=== PATIENT | male | born 1985 | race Caucasian/White ===

== ENCOUNTER 2017-01-20 19:34 | Emergency (ER) | payer MEDICAID ==
[~2017-01-20] VITALS: Ht 182.9 cm; Wt 88.0 kg
[~2017-01-20 19:34] MED LIST: OXYC1CAP PO
[2017-01-20 19:38] VITALS: BP 124/74; PULSE 80; RESP 16; TEMP 98.6; O2SAT 98
--- NOTE | 2017-01-20 20:24 | PD ---
Physical Exam Time Seen by Provider: 20:21 Narrative 31yo M c/o lower abd pain w/ bloody vomitus and bloody diarrhea today. Denies fever. Denies ETOH, drug use. Also c/o L heel pain from falling off a roof one week ago. Patient stable. Patient seen in triage. Awaiting bed placement. Data Data Last Documented VS Vital Signs Date Time Temp Pulse Resp B/P Pulse Ox O2 Delivery O2 Flow Rate FiO2 01/20/17 19:38 98.6 80 16 124/74 98 Room Air MDM Supervised Visit with ELVA: Nadja Medellin Jan 20, 2017 20:24
[2017-01-20] MEDS ORDERED: SODIUM CHLOR 0.9% 1000 ML INJ 1,000 ML IV SCH (22:16)
[2017-01-20] MEDS ORDERED: DEXAMETHASONE SOD PHOS 20 MG/5 ML VIAL IV PUSH ONE (22:30)
[2017-01-20] MEDS ORDERED: SODIUM CHLORIDE 0.9% FLUSH 10 ML FLUSH IV FLUSH PRN (22:30)
[2017-01-20] MEDS ORDERED: MORPHINE SULFATE 4 MG/ML INJ IV PUSH ONE (22:30)
[2017-01-20] MEDS ORDERED: ONDANSETRON HCL 4 MG/2 ML VIAL IVP ONE (22:30)
--- NOTE | 2017-01-20 22:38 | PD ---
Physical Exam Date Seen by Provider: Jan 20, 2017 Time Seen by Provider: 22:36 Narrative The patient is a 31-year-old male who was initially evaluated by the mid-level provider, please refer to the original history, physical, diagnostic evaluation , treatment modality plan. The patient was signed out 11 PM with laboratory evaluation and CT pending. Data Data Last Documented VS Vital Signs Date Time Temp Pulse Resp B/P Pulse Ox O2 Delivery O2 Flow Rate FiO2 01/20/17 22:13 16 01/20/17 19:38 98.6 80 124/74 98 Room Air Orders Complete Blood Count With Diff (01/20/17 22:16) Comprehensive Metabolic Panel (01/20/17 22:16) Lipase (01/20/17 22:16) Lactic Acid (01/20/17 22:16) Prothrombin Time / Inr (Pt) (01/20/17 22:16) Act Partial Throm Time (Ptt) (01/20/17 22:16) Urinalysis - C+S If Indicated (01/20/17 22:16) Iv Access Insert/Monitor (01/20/17 22:16) Ecg Monitoring (01/20/17 22:16) Oximetry (01/20/17 22:16) NPO (01/20/17 22:16) Morphine Inj (Morphine Inj) (01/20/17 22:30) Ondansetron Inj (Zofran Inj) (01/20/17 22:30) Sodium Chlor 0.9% 1000 Ml Inj (Ns 1000 M (01/20/17 22:16) Sodium Chloride 0.9% Flush (Ns Flush) (01/20/17 22:30) Dexamethasone Inj (Decadron Inj) (01/20/17 22:30) Oral Contrast - Adult (01/20/17 22:20) Foot, Complete (Hsy1ctx) (01/20/17 22:31) Diatrizoate Liq ( Gastroview Liq) (01/20/17 23:41) Sodium Chlor 0.9% 1000 Ml Inj (Ns 1000 M (01/21/17 00:00) Ct Abd/Pel W Iv Contrast(Rout) (01/21/17 22:16) Iohexol 350 Inj (Omnipaque 350 Inj) (01/21/17 01:00) Ct Foot W/O Contrast (01/21/17 ) Labs Laboratory Tests Test 01/20/17 22:38 White Blood Count 8.5 TH/MM3 Red Blood Count 5.61 MIL/MM3 Hemoglobin 16.3 GM/DL Hematocrit 48.2 % Mean Corpuscular Volume 85.8 FL Mean Corpuscular Hemoglobin 29.0 PG Mean Corpuscular Hemoglobin 33.8 % Concent Red Cell Distribution Width 14.4 % Platelet Count 219 TH/MM3 Mean Platelet Volume 8.8 FL Neutrophils (%) (Auto) 51.4 % Lymphocytes (%) (Auto) 39.7 % Monocytes (%) (Auto) 7.0 % Eosinophils (%) (Auto) 1.6 % Basophils (%) (Auto) 0.3 % Neutrophils # (Auto) 4.4 TH/MM3 Lymphocytes # (Auto) 3.4 TH/MM3 Monocytes # (Auto) 0.6 TH/MM3 Eosinophils # (Auto) 0.1 TH/MM3 Basophils # (Auto) 0.0 TH/MM3 CBC Comment DIFF FINAL Differential Comment Prothrombin Time 10.6 SEC Prothromb Time International 1.0 RATIO Ratio Activated Partial 24.3 SEC Thromboplast Time Sodium Level 140 MEQ/L Potassium Level 3.5 MEQ/L Chloride Level 101 MEQ/L Carbon Dioxide Level 30.7 MEQ/L Anion Gap 8 MEQ/L Blood Urea Nitrogen 9 MG/DL Creatinine 1.21 MG/DL Estimat Glomerular Filtration 70 ML/MIN Rate Random Glucose 76 MG/DL Lactic Acid Level 2.3 mmol/L Calcium Level 9.4 MG/DL Total Bilirubin 0.9 MG/DL Aspartate Amino Transf 27 U/L (AST/SGOT) Alanine Aminotransferase 64 U/L (ALT/SGPT) Alkaline Phosphatase 158 U/L Total Protein 9.0 GM/DL Albumin 4.3 GM/DL Lipase 101 U/L [facility] Medical Record Reviewed: Yes Supervised Visit with ELVA: Yes Interpretation(s) Laboratory Tests Test 01/20/17 22:38 White Blood Count 8.5 TH/MM3 Red Blood Count 5.61 MIL/MM3 Hemoglobin 16.3 GM/DL Hematocrit 48.2 % Mean Corpuscular Volume 85.8 FL Mean Corpuscular Hemoglobin 29.0 PG Mean Corpuscular Hemoglobin 33.8 % Concent Red Cell Distribution Width 14.4 % Platelet Count 219 TH/MM3 Mean Platelet Volume 8.8 FL Neutrophils (%) (Auto) 51.4 % Lymphocytes (%) (Auto) 39.7 % Monocytes (%) (Auto) 7.0 % Eosinophils (%) (Auto) 1.6 % Basophils (%) (Auto) 0.3 % Neutrophils # (Auto) 4.4 TH/MM3 Lymphocytes # (Auto) 3.4 TH/MM3 Monocytes # (Auto) 0.6 TH/MM3 Eosinophils # (Auto) 0.1 TH/MM3 Basophils # (Auto) 0.0 TH/MM3 CBC Comment DIFF FINAL Differential Comment Prothrombin Time 10.6 SEC Prothromb Time International 1.0 RATIO Ratio Activated Partial 24.3 SEC Thromboplast Time Sodium Level 140 MEQ/L Potassium Level 3.5 MEQ/L Chloride Level 101 MEQ/L Carbon Dioxide Level 30.7 MEQ/L Anion Gap 8 MEQ/L Blood Urea Nitrogen 9 MG/DL Creatinine 1.21 MG/DL Estimat Glomerular Filtration 70 ML/MIN Rate Random Glucose 76 MG/DL Lactic Acid Level 2.3 mmol/L Calcium Level 9.4 MG/DL Total Bilirubin 0.9 MG/DL Aspartate Amino Transf 27 U/L (AST/SGOT) Alanine Aminotransferase 64 U/L (ALT/SGPT) Alkaline Phosphatase 158 U/L Total Protein 9.0 GM/DL Albumin 4.3 GM/DL Lipase 101 U/L Last Impressions Abdomen/Pelvis CT 01/21/176 Signed Impressions: Service Date/Time: Saturday, January 21, 2017 00:47 - CONCLUSION: Normal examination. Paulo De La Torre Jr., MD Foot X-Ray 01/20/17 2231 Signed Impressions: Service Date/Time: January 22:28 - CONCLUSION: Questionable hairline fracture of the calcaneus. Marlene Carmona MD Differential Diagnosis Differential diagnosis includes Crohn's disease exacerbation, ulcerative colitis , enteritis, colitis, C. difficile, atypical appendicitis, diverticular abscess , internal hemorrhoids, anemia, GI bleed. Narrative Course I, Dr. Ignacio, have reviewed the advance practice practitioner's documentation and am in agreement, met with the patient face to face, made the diagnosis, and the medical decision making was done by me. *My assessment and Findings: The patient is a 31-year-old male who is initially evaluated by the mid-level provider. Please refer to the initial history, physical, diagnostic evaluation, and treatment modality plan. The patient does have a history of Crohn's disease, has not undergone treatment secondary to the minimal response he experienced with previous treatments. The patient also complained of left heel pain. An x-ray was obtained, questionable fracture left calcaneus, therefore, CT of the left foot was ordered, however, patient refused CT. Advised the patient wear unsure if he has a true fracture as there is a questionable hairline fracture of the calcaneus. CT the abdomen and pelvis as previously ordered was unremarkable. Patient's laboratory evaluation is unremarkable except for lactic acid 2.3, the patient was administered 2 L of IV fluids.. Patient will need follow-up with a psychology teacher in regards to his Crohn's disease. The patient will be splinted in a [place] splint for his possible calcaneal fracture, he states he fell 18 feet, will also be fitted for crutches. He will be discharged home on prednisone and Percocet. He is advised to follow-up with [facility] and a psychology teacher. Diagnosis Primary Impression: Abdominal pain Qualified Code: R10.30 - Lower abdominal pain Additional Impressions: Exacerbation of Crohn's disease Qualified Code: K50.90 - Exacerbation of Crohn's disease, without complications Left calcaneal fracture Qualified Code: S92.002A - Closed nondisplaced fracture of left calcaneus, unspecified portion of calcaneus, initial encounter Patient Instructions: General Instructions Additional Instruction: [place] splint and crutches. Prednisone and Percocet as directed. Follow-up with your psychology teacher in follow-up with orthopedics. Elevate, ice. Med/Other Pt SpecificInfo: Prescription(s) given Scripts Oxycodone-Acetaminophen (Percocet)5-325 mg Tab1 Tab PO Q6H PRN (PAIN) #20 TAB Ref 0 Prov:Joel Ignacio MD 01/21/17 Prednisone (Deltasone)20 Mg Tab40 Mg PO DAILY 5 Days Ref 0 Prov:Joel Ignacio MD 01/21/17 Disposition: 01 DISCHARGE HOME Condition: Stable Joel Ignacio MD Jan 20, 2017 22:38
--- NOTE | 2017-01-20 22:41 | PD ---
HPI Chief Complaint: GI Complaint Time Seen by Provider: 22:33 Travel History International Travel<30 days: No Contact w/Intl Traveler<30days: No Traveled to known affect area: No History of Present Illness HPI 31-year-old male presents the emergency department with a history of lower abdominal pain, centralized, as well as nausea, vomiting, and diarrhea. States occasional bright red bloody streaks in his diarrhea and vomitus. Patient denies fever, chills, shortness of breath, or chest pain. Patient states history of Crohn's she has not been treating for the past year and a half. Patient states she has similar episode approximately 1-1/2 months ago for which he did not seek medical attention. Patient states this time he seems worse and is worsening not improving after 3 days. Patient also relates a fall from partially 18 foot height from a ladder to the ground with ongoing left heel pain. Patient questions whether he may have broken his heel. Patient is able walk but not able to bear weight on the heel itself. Patient denies urinary symptoms. He states she does not feel dehydrated at this time. His pain is diffuse through the lower abdomen without point tenderness or flank pain. He describes his pain as cramping and 7/10. Patient did see a certified scrub tech in [place] until approximately 2 years ago. He was tried on various medications for his Crohn's, but no other works very well he said. Patient states she has had steroids with improvement in the past. He is allergic to penicillin. PFSH Past Medical History Medical other: Yes (COHRONS) Past Surgical History Other Surgery: Yes (L INGUINAL HERNIA) Social History Alcohol Use: Yes (RARE) Tobacco Use: Yes (1PPD) Substance Use: No Allergies-Medications (Allergen,Severity, Reaction): Coded Allergies: Penicillin (Verified Allergy, Unknown, 01/20/17) Reported Meds & Prescriptions Reported Meds & Active Scripts Active No Active Prescriptions or Reported Medications Review of Systems General / Constitutional: No: Fever Eyes: No: Visual changes HENT: No: Headaches Cardiovascular: No: Chest Pain or Discomfort Respiratory: No: Shortness of Breath Gastrointestinal: Positive: Nausea, Vomiting, Diarrhea, Abdominal Pain (see history present of) Genitourinary: No: Dysuria Musculoskeletal: No: Pain Skin: No Rash Neurologic: No: Weakness Psychiatric: No: Depression Endocrine: No: Polydipsia Hematologic/Lymphatic: No: Easy Bruising Physical Exam Narrative GENERAL: Patient appears in mild to moderate distress. SKIN: Warm and dry. Normal color. Normal turgor. HEAD: Atraumatic. Normocephalic. EYES: Pupils equal and round. No scleral icterus. No injection or drainage. ENT: No nasal bleeding or discharge. Mucous membranes pink and moist. Pharynx is clear. Airway is patent. NECK: Trachea midline. No JVD. Supple nontender. CARDIOVASCULAR: Regular rate and rhythm. No murmurs gallops or rubs. RESPIRATORY: No accessory muscle use. Clear to auscultation. Breath sounds equal bilaterally. GASTROINTESTINAL: Abdomen soft, moderate generalized lower and periumbilical tenderness, nondistended. Hepatic and splenic margins not palpable. No CVA tenderness. MUSCULOSKELETAL: Extremities without clubbing, cyanosis, or edema. No obvious deformities. Left foot appears normal. No obvious bruising or deformity. Patient is tenderness along the plantar calcaneus and proximal arch. No pain in the dorsal foot or toes. NEUROLOGICAL: Awake and alert. No obvious cranial nerve deficits. Motor grossly within normal limits. Five out of 5 muscle strength in the arms and legs. Normal speech. PSYCHIATRIC: Appropriate mood and affect; insight and judgment normal. Data Data Last Documented VS Vital Signs Date Time Temp Pulse Resp B/P Pulse Ox O2 Delivery O2 Flow Rate FiO2 01/20/17 22:13 16 01/20/17 19:38 98.6 80 124/74 98 Room Air Orders Complete Blood Count With Diff (01/20/17 22:16) Comprehensive Metabolic Panel (01/20/17 22:16) Lipase (01/20/17 22:16) Lactic Acid (01/20/17 22:16) Prothrombin Time / Inr (Pt) (01/20/17 22:16) Act Partial Throm Time (Ptt) (01/20/17 22:16) Urinalysis - C+S If Indicated (01/20/17 22:16) Ct Abd/Pel W Iv Contrast(Rout) (01/20/17 22:16) Iv Access Insert/Monitor (01/20/17 22:16) Ecg Monitoring (01/20/17 22:16) Oximetry (01/20/17 22:16) NPO (01/20/17 22:16) Morphine Inj (Morphine Inj) (01/20/17 22:30) Ondansetron Inj (Zofran Inj) (01/20/17 22:30) Sodium Chlor 0.9% 1000 Ml Inj (Ns 1000 M (01/20/17 22:16) Sodium Chloride 0.9% Flush (Ns Flush) (01/20/17 22:30) Dexamethasone Inj (Decadron Inj) (01/20/17 22:30) Oral Contrast - Adult (01/20/17 22:20) MDM Medical Decision Making Medical Screen Exam Complete: Yes Emergency Medical Condition: Yes Differential Diagnosis Fall from ladder. Left heel pain. Nausea, vomiting, Crohn's flare, ulcerative colitis, gastritis, GI bleed. Possibly a heel fracture. Narrative Course Patient is medically stable at time of exam. Labs ordered including CBC, CMP, lipase, lactic acid, urinalysis. IV access is obtained patient is given 4 mg morphine IV as well as 4 mg of ondansetron IV. Patient is given 10 mg Decadron IV. Patient is given 1000 mL's normal saline bolus. X-rays of the left heel are ordered to rule out fracture. Abdomen pelvis CT with oral contrast is ordered. 2300 hrs. patient is discussed with Dr. Ignacio who assumes care of the patient. Final disposition will be determined by him. Scripts No Active Prescriptions or Reported Meds Condition: Stable Kit Marques Jan 20, 2017 22:41
--- NOTE | 2017-01-20 22:48 | RADRPT ---
EXAM DATE/TIME: 01/20/2017 22:28 [facility] COMPARISON: No previous studies available for comparison. INDICATIONS : Fell from roof. Complains of left heel pain. MEDICAL HISTORY : None. SURGICAL HISTORY : None. ENCOUNTER: Initial ACUITY: 1 week PAIN SCORE: 10/10 LOCATION: Left foot FINDINGS: There is a questionable hairline fracture of the midportion of the calcaneus. No definite lytic or sc lerotic lesion is seen. The joint spaces are well maintained. CONCLUSION: Questionable hairline fracture of the calcaneus. Marlene Carmona MD on January 20, 2017 at 22:45 Board Certified Radiologist. This report was verified electronically.
[2017-01-20 22:58] LABS: AUTOMATED NEUTROPHIL # 4.4 TH/MM3 (1.8-7.7); BASOPHIL % 0.3 % (0.0-2.0); EOSINOPHIL # 0.1 TH/MM3 (0-0.4); EOSINOPHIL % 1.6 % (0.0-4.0); HEMATOCRIT 48.2 % (39.0-51.0); HEMO FLAGS DIFF FINAL; LYMPH % 39.7 % (9.0-44.0); LYMPHOCYTE # 3.4 TH/MM3 (1.0-4.8); MEAN CELL VOLUME 85.8 FL (80.0-100.0); MEAN CORPUSCULAR HGB CONC 33.8 % (32.0-36.0); NEUT % 51.4 % (16.0-70.0); PLATELET COUNT 219 TH/MM3 (150-450); RED BLOOD COUNT 5.61 MIL/MM3 (4.50-5.90); RED CELL DISTRIBUTION WIDTH 14.4 % (11.6-17.2); WHITE BLOOD COUNT 8.5 TH/MM3 (4.0-11.0)
[2017-01-20 23:06] LABS: APTT (PATIENT) 24.3 SEC (24.3-30.1); PROTHROMBIN TIME - PATIENT 10.6 SEC (9.8-11.6)
[2017-01-20 23:33] LABS: ALKALINE PHOSPHATASE 158 U/L (45-117); ALT (GPT) 64 U/L (12-78); ANION GAP 8 MEQ/L (5-15); AST (GOT) 27 U/L (15-37); BICARBONATE 30.7 MEQ/L (21.0-32.0); BLOOD UREA NITROGEN 9 MG/DL (7-18); CHLORIDE 101 MEQ/L (98-107); GLOMERULAR FILTRATION RATE 70 ML/MIN (>89); POTASSIUM 3.5 MEQ/L (3.5-5.1); SODIUM (NA) 140 MEQ/L (136-145); TOTAL BILIRUBIN ADULT 0.9 MG/DL (0.2-1.0)
[2017-01-20] MEDS ORDERED: DIATRIZOATE MEGLUM/DIATRIZOATE SOD 9 ML CUP ONE (23:41)
[2017-01-21] MEDS ORDERED: SODIUM CHLOR 0.9% 1000 ML INJ 1,000 ML IV ONE
[2017-01-21] MEDS ORDERED: IOHEXOL 350 MG/ML 10 ML VIAL (for RAD DIAG) IV ONE (01:00)
--- NOTE | 2017-01-21 01:13 | RADRPT ---
EXAM DATE/TIME: 01/21/2017 00:47 [facility] COMPARISON: CT ABDOMEN & PELVIS W CONTRAST, September 19, 2016, 1:08. INDICATIONS : Lower abdominal pain with nausea, vomiting, and diarrhea. IV CONTRAST: 100 cc Omnipaque 350 (iohexol) IV ORAL CONTRAST: Prescribed oral contrast ingested. RADIATION DOSE: 6.84 CTDIvol (mGy) MEDICAL HISTORY : Hernia, inguinal. Crohns disease. SURGICAL HISTORY : Inguinal hernia repair. ENCOUNTER: Initial ACUITY: 1 day PAIN SCALE: 8/10 LOCATION: lower quadrant abdomen TECHNIQUE: Volumetric scanning of the abdomen and pelvis was performed. Using automated exposure control and ad justment of the mA and/or kV according to patient size, radiation dose was kept as low as reasonably achievable to obtain optimal diagnostic quality images. FINDINGS: LOWER LUNGS: Mild left basilar atelectasis. LIVER: Homogeneous density without lesion. There is no dilation of the biliary tree. No calcified gallston es. SPLEEN: Normal size without lesion. PANCREAS: Within normal limits. KIDNEYS: Normal in size and shape. There is no mass, stone or hydronephrosis. ADRENAL GLANDS: Within normal limits. VASCULAR: There is no aortic aneurysm. BOWEL/MESENTERY: The stomach, small bowel, and colon demonstrate no acute abnormality. There is no free intraperitone al air or fluid. ABDOMINAL WALL: Within normal limits. RETROPERITONEUM: There is no lymphadenopathy. BLADDER: No wall thickening or mass. REPRODUCTIVE: Within normal limits. INGUINAL: There is no lymphadenopathy or hernia. MUSCULOSKELETAL: Within normal limits for patient age. CONCLUSION: Normal examination. Paulo De La Torre Jr., MD on January 21, 2017 at 1:09 Board Certified Radiologist. This report was verified electronically.
[2017-01-21] MEDS ORDERED: PRED-503 PO (02:30)
[2017-01-21] MEDS ORDERED: PERC5TAB12 PO (02:30)
== END 2017-01-21 03:59 | disposition home or self-care (01) ==
LOC: NEPE 19:34
DX: R10.30 Lower abdominal pain, unspecified (principal); K50.90 Crohn's disease, unspecified, without complications; S92.002A Unspecified fracture of left calcaneus, initial encounter for closed fracture; W11.XXXA Fall on and from ladder, initial encounter; F17.210 Nicotine dependence, cigarettes, uncomplicated
CPT/HCPCS: 29515; 73630; 74177; 80053; 83605; 83690; 85025; 85610; 85730; 96361; 96374; 96375; 99284; E0113; J1100; J2270; J2405; J7030; Q9963; Q9967